=== PATIENT | male | born 1980 | race Caucasian/White ===

== ENCOUNTER 2017-01-29 03:58 | Emergency (ER) | payer MEDICAID ==
--- NOTE | 2017-01-29 04:43 | ERNOTE ---
Medical Problem HPI - General Chief Complaint: Nausea/Vomiting Time Seen by Provider: 01/29/17 04:22 Source: patient Exam Limitations: no limitations - Immun/Allergies/Home Medications Immunizations: IMMUNIZATION HX Immunizations Up to Date Yes History of Influenza Vaccine Yes Allergies/Adverse Reactions: Allergies No Known Allergies Allergy (Verified 01/29/17 04:28) Home Medications: HOME MEDICATIONS Metoprolol Succinate [Toprol Xl] 25 mg PO BID 10/23/12 [Last Taken 11/24/14 22: 30] LORazepam [Ativan] 1 mg PO HS PRN 03/27/14 [Last Taken Unknown] metFORMIN HCL [Glucophage] 1,000 mg PO BIDWM 03/27/14 [Last Taken 11/24/14 22:30 ] Amoxicillin 875 mg PO BID #20 tablet 01/29/17 [Last Taken Unknown] Insulin Glargine,Hum.rec.anlog [Lantus] 30 units SC HS 01/29/17 [Last Taken Unknown] Lisinopril 20 mg PO DAILY 01/29/17 [Last Taken Unknown] glipiZIDE [Glucotrol] 10 mg PO DAILY 01/29/17 [Last Taken Unknown] - History of Present History Narrative: Pt states he vomited earlier today. He states that his system has been "upset" since his implanted defibrillator was replaced. Pt has many explanations of why he has been feeling this way. Timing: intermittent Severity: moderate Review of Systems - Review of Systems Constitutional: Present: fatigue, other - intermittent pain "all over my body". Absent: recent illness, fever EYE: Present: no symptoms reported ENT: Present: nose congestion, nasal drainage Respiratory: Absent: shortness of breath Cardiology: Present: chest pain Gastrointestinal/Abdominal: Present: See HPI, constipation Genitourinary: Present: no symptoms reported Musculoskeletal: Present: no symptoms reported Skin: Present: no symptoms reported Neurological: Present: anxiety Endocrine: Present: no symptoms reported Hematologic/Lymphatic: Present: no symptoms reported Psych: Present: no symptoms reported - Patient's Past Medical History Patient History - Medical: Diabetes Type 2 Patient History - Cardiac/Respiratory: Other Patient History - Cancer: No Hx of Cancer Patient History - Surgical Procedures: Other, Hernia Repair Patient History - Other: None - Social History Living Situations: home Abuse History: No History of abuse Psych History: Hx of Anxiety, Current tx/ever been on anti-depressants or anti- anxiety meds Smoking Status: Never smoker Alcohol Use: none Drug Use: none - Immunizations Immunizations Up to Date: Yes History of Influenza Vaccine: Yes Physical Exam - Physical Exam General Appearance: Present: wd/wn, alert, no apparent distress Head Exam: Present: normal inspection, no evidence of injury Eye Exam: Normal inspection: bilateral Ears, Nose, Throat: Present: nasal congestion Neck: Present: normal inspection, nontender Respiratory: Present: no respiratory distress, normal breath sounds, lungs clear Cardiovascular/Chest: Present: regular rate, rhythm, no murmur, normal peripheral pulses Gastrointestinal/Abdominal: Present: normal bowel sounds, nontender, nondistended, soft Back Exam: Present: normal inspection, normal range of motion Extremity Exam: Present: normal inspection, non-tender, normal range of motion Neurological Exam: Present: alert, oriented, normal mood/affect Skin Exam: Present: normal color, warm/dry Lymphatic Exam: Present: no adenopathy ED Progress - Results and Orders Patient's Lab Results:: I have reviewed the patient's lab results. Results and Orders: Laboratory Tests 01/29/17 01/29/17 04:44 04:44 WBC 12.3 H Hgb 14.0 Hct 40.5 L Plt Count 303 Sodium 140 Potassium 3.9 Chloride 100 Carbon Dioxide 29.4 BUN 16 D Creatinine 0.93 Random Glucose 213 H Calcium 9.1 Total Bilirubin 0.5 AST 14 ALT 32 Alkaline Phosphatase 98 Total Protein 7.5 Albumin 3.9 Amylase 27 Lipase 129 - Vital Signs Patient's Vital Signs:: I have reviewed the patient's vital signs. Vital Signs: Vital Signs 01/29/17 04:04 Temperature 36.7 C Pulse Rate 97 Respiratory 18 Rate Blood Pressure 151/97 O2 Sat by Pulse 95 Oximetry - X-Ray X-Ray #1 X-Ray: abdomen Interpretation: Interp. by me X-ray Comments: moderate retained stool. no evidence of obstruction. X-Ray #2 X-Ray: chest Interpretation: Interp. by me X-ray Comments: no infiltrate or effusion. Cardiac size normal. defibrillator in left chest appears in good placement - Progress/Reassessment Chief Complaint: Nausea/Vomiting Progress:: Improved Departure - Departure Clinical Impression: Constipation Qualifiers: Constipation type: chronic idiopathic constipation Qualified Code(s): K59.04 - Chronic idiopathic constipation Sinus infection Qualifiers: Sinusitis location: maxillary Chronicity: acute Recurrence: not specified as recurrent Qualified Code(s): J01.00 - Acute maxillary sinusitis, unspecified Disposition: Home self-care Condition: Good Instructions: Constipation, Adult, [id number], Sinusitis, Adult, [id number] Additional Instructions: take a gentle over the counter laxative daily Referrals: Eduardo Jacobs MD [Primary Care Provider] - Prescriptions: Amoxicillin 875 mg PO BID #20 tablet
[2017-01-29 04:44] LABS: Hematocrit 40.5 % (42.0-52.0); Mean Cell Volume 82.2 fl (78-100); Mean Corpuscular Hemoglobin 28.4 pg (27-31); Mean Corpuscular Hgb Conc 34.6 g/dl (32-36); Mean Platelet Volume 10.4 fl (6.0-9.5); Neutrophil # 9.1 K/mm3 (1.3-6.0); Neutrophil % 73.8 % (42-75.0); Platelet Count 303 K/mm3 (150-450); Red Blood Count 4.93 M/mm3 (4.7-6.0); Red Cell Distribution Width 12.8 % (11.5-14.0); White Blood Count 12.3 K/mm3 (4.0-10.5)
[2017-01-29 04:59] LABS: Albumin * 3.9 gm/dl (3.4-5.0); Anion Gap 14.5 mmol/L (6.8-13.8); BUN/Creatinine Ratio 17.2 (9.0-21.6); Bilirubin, Total 0.5 mg/dL (0.0-1.1); Ca. Corrected For Albumin 8.9 mg/dL (8.4-10.2); Calcium * 9.1 mg/dL (7.9-10.9); Carbon Dioxide 29.4 mmol/L (24-32.6); Potassium 3.9 mmol/L (3.4-4.6); Total Protein 7.5 gm/dL (6.2-8.2)
[2017-01-29] MEDS ORDERED: AMOXICILLIN TRIHYDRATE 250 MG CAPSULE PO ONE (05:25)
[2017-01-29] MEDS ORDERED: AMOXICILLIN TRIHYDRATE 250 MG CAPSULE ONE (05:27)
[2017-01-29 05:36] VITALS: BP 120/76
== END 2017-01-29 05:38 | disposition home or self-care (01) ==
LOC: ER 03:58
DX: K59.04 Chronic idiopathic constipation (principal); J01.00 Acute maxillary sinusitis, unspecified; E11.9 Type 2 diabetes mellitus without complications

== ENCOUNTER 2017-02-06 22:22 | Emergency (ER) | payer MEDICAID ==
[2017-02-06] MEDS ORDERED: KETOROLAC TROMETHAMINE 30 MG/ML VIAL IM ONE (22:32)
[2017-02-06 22:33] VITALS: BP 169/102
[2017-02-06] MEDS ORDERED: KETOROLAC TROMETHAMINE 30 MG/ML VIAL ONE (22:35)
--- NOTE | 2017-02-06 22:36 | ERNOTE ---
Upper Extremity HPI - Narrative Date of Service: 02/06/17 - General Extremities Pain Location: elbow: right Source: patient Exam Limitations: no limitations - Immun/Allergies/Home Medications Immunizations: IMMUNIZATION HX Immunizations Up to Date Yes History of Influenza Vaccine Yes Hx Pneumococcal Vaccination No Allergies/Adverse Reactions: Allergies Allergy/AdvReac Type Severity Reaction Status Date / Time No Known Allergies Allergy Verified 02/06/17 22:33 Home Medications: HOME MEDICATIONS Metoprolol Succinate [Toprol Xl] 25 mg PO BID 10/23/12 [Last Taken 11/24/14 22: 30] LORazepam [Ativan] 1 mg PO HS PRN 03/27/14 [Last Taken Unknown] metFORMIN HCL [Glucophage] 1,000 mg PO BIDWM 03/27/14 [Last Taken 11/24/14 22:30 ] Amoxicillin 875 mg PO BID #20 tablet 01/29/17 [Last Taken Unknown] Insulin Glargine,Hum.rec.anlog [Lantus] 30 units SC HS 01/29/17 [Last Taken Unknown] Lisinopril 20 mg PO DAILY 01/29/17 [Last Taken Unknown] glipiZIDE [Glucotrol] 10 mg PO DAILY 01/29/17 [Last Taken Unknown] HYDROcodone/ACETAMINOPHEN [[place] 5-325] 1 each PO Q4H PRN #20 tablet 02/06/17 [ Last Taken Unknown] - History of Present Illness Narrative: This is a 36-year-old male who comes to the emergency department complaining of right elbow pain. He says that he woke up yesterday morning, and his arm felt "tight". He says that he straightened it out and it just felt very tight but didn't have any specific pain. The patient says that he sleeps on that side because he has a pacemaker/defibrillator on the other side. He does not know of any trauma. The patient says that he was not having any pain until earlier today when he placed some ice on his arm. He then said that it started to have severe pain. The patient says that he has had no numbness or tingling. He has had no problem moving his fingers. He is left handed. The patient has no other complaints at present. He is a diabetic, has high blood pressure, and has a history of coronary arrhythmias cardiac arrhythmias. Review of Systems - Review of Systems Constitutional: Present: no symptoms reported EYE: Present: no symptoms reported ENT: Present: no symptoms reported Respiratory: Present: no symptoms reported Cardiology: Present: no symptoms reported Gastrointestinal/Abdominal: Present: no symptoms reported Genitourinary: Present: no symptoms reported Musculoskeletal: Present: See HPI, muscle pain, muscle stiffness, joint pain Skin: Present: no symptoms reported Neurological: Present: no symptoms reported Endocrine: Present: no symptoms reported Hematologic/Lymphatic: Present: no symptoms reported Psych: Present: no symptoms reported All Other Systems: All systems neg except as marked - Patient's Past Medical History Patient History - Medical: Diabetes Type 2 Patient History - Cardiac/Respiratory: Other Patient History - Cancer: No Hx of Cancer Patient History - Surgical Procedures: Other, Hernia Repair Patient History - Other: None - Social History Living Situations: home Abuse History: No History of abuse Psych History: Hx of Anxiety, Current tx/ever been on anti-depressants or anti- anxiety meds Smoking Status: Never smoker Alcohol Use: none Drug Use: none - Immunizations Immunizations Up to Date: Yes Hx Pneumococcal Vaccination: No History of Influenza Vaccine: Yes Physical Exam - Physical Exam General Appearance: Present: wd/wn, alert, no apparent distress Head Exam: Present: normal inspection, no evidence of injury Eye Exam: Normal inspection: bilateral, PERRL: bilateral, EOMI: bilateral Ears, Nose, Throat: Present: normal ENT inspection, normal pharynx Neck: Present: normal inspection, nontender Respiratory: Present: no respiratory distress, normal breath sounds, no accessory muscle use, chest nontender, lungs clear Cardiovascular/Chest: Present: regular rate, rhythm, no murmur, normal peripheral pulses Peripheral Pulses: N=norm/S=strong/W=weak/B=bound/A=absent: Radial (R): Normal Gastrointestinal/Abdominal: Present: normal bowel sounds, nontender, nondistended Extremity Exam: Present: other - the patient has limited range of motion of the right elbow due to discomfort. He has tenderness to palpation along the bicipital insertion tendon. No pain with compression of the bones of the forearm. Brachial and radial pulses are intact. Distal neurovascular is intact. Intrinsic and extrinsic motions of the hand are all intact. Neurological Exam: Present: alert, oriented, normal mood/affect, no motor/ sensory deficits Skin Exam: Present: normal color, warm/dry Lymphatic Exam: Present: no adenopathy ED Progress - Vital Signs Patient's Vital Signs:: I have reviewed the patient's vital signs. Vital Signs: Vital Signs 02/06/17 22:28 Temperature 36.7 C Pulse Rate 105 H Respiratory 18 Rate Blood Pressure 169/102 O2 Sat by Pulse 96 Oximetry - X-Ray X-Ray #1 X-Ray: elbow Interpretation: Interp. by me X-ray Comments: No acute fracture or osseous abnormality - Progress/Reassessment Chief Complaint: Upper Extremity Injury/Problem Departure Clinical Impression: Elbow pain - Departure Disposition: Home self-care Condition: Stable Additional Instructions: As we discussed, urinary examination does not appear to be that of an infection. The x-ray does not show anything to be fractured. This does not mean that there is nothing wrong, only that I have failed to identify an emergency medical condition which requires immediate treatment. Take the prescribed medicine to help with pain. I want you to take an anti- inflammatory like ibuprofen. You should take 3 tablets every 6 hours for at least 5 days. Call your family doctor and set up a follow-up appointment. Do not drive while taking the prescribed [place]. Return to ER for new concerning symptoms. Referrals: Eduardo Jacobs MD [Primary Care Provider] - Prescriptions: HYDROcodone/ACETAMINOPHEN [[place] 5-325] 1 each PO Q4H PRN #20 tablet PRN Reason: Pain
[2017-02-06] MEDS ORDERED: HYDROcodone/ACETAMINOPHEN 1 EACH TABLET PO ONE (23:00)
[2017-02-06] MEDS ORDERED: HYDROcodone/ACETAMINOPHEN 1 EACH TABLET ONE (23:06)
== END 2017-02-06 23:20 | disposition home or self-care (01) ==
LOC: ER 22:22
DX: M25.521 Pain in right elbow (principal)